=== PATIENT | female | born 1990 | race African-American/Black ===

== ENCOUNTER 2020-09-01 08:38 | Emergency (ER) | payer OTHER ==
[~2020-09-01] VITALS: Ht 177.8 cm; Wt 83.9 kg
[2020-09-01] MEDS ORDERED: KETOROLAC TROMETH 60MG/2ML VIAL IM ONE (10:15)
[2020-09-01 10:29] VITALS: BP 135/84
== END 2020-09-01 11:13 | disposition home or self-care (01) ==
LOC: ER 08:38
DX: M54.9 Dorsalgia, unspecified (principal); V43.52XA Car driver injured in collision with other type car in traffic accident, initial encounter; Y93.89 Activity, other specified; Y99.8 Other external cause status; Y92.410 Unspecified street and highway as the place of occurrence of the external cause
CPT/HCPCS: 72040; 72070; 72100; 73030; 96372; 99284; J1885